=== PATIENT | female | born 2000 | race Two or more races ===

== ENCOUNTER 2022-01-30 23:06 | Emergency (ER) | payer OTHER ==
[~2022-01-30] VITALS: Ht 157.5 cm; Wt 72.7 kg
[2022-01-31 04:42] VITALS: BP 105/65
== END 2022-01-31 04:48 | disposition home or self-care (01) ==
LOC: EMS 23:12
DX: S71.152A Open bite, left thigh, initial encounter (principal); W54.0XXA Bitten by dog, initial encounter; Y92.89 Other specified places as the place of occurrence of the external cause; Y93.89 Activity, other specified; Y99.8 Other external cause status
CPT/HCPCS: 99281; Z7502